=== PATIENT | male | born 1980 | race Caucasian/White ===

== ENCOUNTER 2017-07-01 16:47 | Emergency (ER) | payer SELFPAY ==
[~2017-07-01] VITALS: Ht 180.3 cm; Wt 88.5 kg
[2017-07-01] MEDS ORDERED: TYLENOL # 31 EA PO (16:59)
[2017-07-01] MEDS ORDERED: HYDROCODONE/APAP 10MG-325MG TAB PO ONE (17:00)
--- NOTE | 2017-07-01 17:35 | Diagnostic Imaging Report ---
HAND 3+ VIEWS RIGHT - 3 views HISTORY: Pain. Right fifth metacarpal pain after punching dresser COMPARISON: None available. FINDINGS: Bones: Old healed fracture of the fifth metacarpal with volar angulation. New acute fracture at the base of the fifth metacarpal with intra-articular involvement. Joints: The joint spaces are well-maintained. Soft tissues: Diffuse soft tissue swelling around the ulnar aspect of the right hand IMPRESSION: 1. Old healed fracture of the fifth metacarpal with volar angulation. 2. New acute fracture at the base of the fifth metacarpal with intra-articular involvement. Signed by: Dr. Gerald Mora M.D. on 07/01/2017 5:32 PM
[2017-07-01 17:54] VITALS: BP 138/96
== END 2017-07-01 19:28 | disposition home or self-care (01) ==
LOC: ER 16:47
DX: M79.641 Pain in right hand (principal); S62.316A Displaced fracture of base of fifth metacarpal bone, right hand, initial encounter for closed fracture; X79.XXXA Intentional self-harm by blunt object, initial encounter; Y93.89 Activity, other specified; Y92.008 Other place in unspecified non-institutional (private) residence as the place of occurrence of the external cause
CPT/HCPCS: 99284